=== PATIENT | female | born 1975 | race Two or more races ===

== ENCOUNTER 2022-08-22 20:11 | Emergency (ER) | payer OTHER ==
[~2022-08-22] VITALS: Ht 160 cm; Wt 61.2 kg
[2022-08-22] MEDS ORDERED: CLONIDINE HCL0.1 MG PO (21:05)
[2022-08-22] MEDS ORDERED: AMLODIPINE-BEN1 EAC3 PO (21:05)
[2022-08-22] MEDS ORDERED: ESTR0.624 PO (21:06)
[2022-08-22] MEDS ORDERED: SYNTHROID50 MCG PO (21:06)
== END 2022-08-22 22:15 | disposition home or self-care (01) ==
LOC: ER 20:11
DX: R30.0 Dysuria (principal); M54.9 Dorsalgia, unspecified

== ENCOUNTER 2023-06-27 08:07 | Emergency (ER) | payer OTHER ==
[~2023-06-27] VITALS: Ht 233.7 cm; Wt 62.6 kg
[~2023-06-27 08:07] MED LIST: AMLODIPINE-BEN1 EAC3 PO; CLONIDINE HCL0.1 MG PO; ESTR0.624 PO; SYNTHROID50 MCG PO
[2023-06-27] MEDS ORDERED: ANTIVERT25 M2 PO (10:17)
== END 2023-06-27 10:33 | disposition home or self-care (01) ==
LOC: ER 08:07
DX: H81.10 Benign paroxysmal vertigo, unspecified ear (principal); I10 Essential (primary) hypertension

== ENCOUNTER 2025-02-16 13:49 | Emergency (ER) | payer OTHER ==
[~2025-02-16] VITALS: Ht 165.1 cm; Wt 72.6 kg
[~2025-02-16 13:49] MED LIST changes: +ANTIVERT25 M2 PO
[2025-02-16] MEDS ORDERED: AMLODIPINE-OLM1 EAC2 (14:11)
[2025-02-16] MEDS ORDERED: ARBLI10 MG/1 ML (14:12)
[2025-02-16 18:31] LABS: BASO % 0.8 % (0.1-1.2); EOS # 0.41 (0.04-0.54); EOS % 4.0 % (0.7-7.0); LYMPH # 3.62 (1.18-3.74); LYMPH % 35.5 % (19.3-53.1); MEAN PLATELET VOLUME 9.80 fl (9.4-12.4); MONO # 0.91 (0.24-0.82); MONO % 8.9 % (4.7-12.5); NEUT # 5.16 (1.56-6.13); NEUT % 50.5 % (34.0-71.1); RED CELL DISTRIBUTION WIDTH 12.6 % (11.6-14.4)
[2025-02-16 18:45] LABS: ALT/SGPT 35.0 U/L (12-78); AST/SGOT 21.0 U/L (15-37); BILIRUBIN TOTAL 1.06 mg/dL (0.3-1.2); BUN CREA RATIO 11.0 (7.0-25.0); CREATININE SERUM 1.17 mg/dL (0.55-1.02); GFR 48.96; GLOBULINA 4.5 G/DL (2.4-3.5); GLUCOSE FASTING 97.0 mg/dL (65-100); OSMOLALITY SERUM 279.0 MOSM/KG (275-295)
== END 2025-02-16 20:24 | disposition home or self-care (01) ==
LOC: ER 13:49
PROVIDERS: General Practice
DX: R42 Dizziness and giddiness (principal)